=== PATIENT | female | born 1935 | race Caucasian/White ===

== ENCOUNTER → 2017-10-14 | Outpatient (CLI) | payer MEDICARE, BC ==
[~2017-10-14] MED LIST: ACETAMINOPHEN325 M1 OR; ALOE VERA237 ML PO; APAP500 PO; AZITHROMYCIN 2250 MG PO; BACTRIM DS TAB1 EACH PO; BENTYL20 MG PO; BONE SUPPORT PO; CENTRUM SILVER1 EAC4 PO; CEROVITE SENIO1 EACH PO; CIPRO250 M1 PO; CIPRO500 MG PO; COLACE100 MG OR; COUMADIN 4 MG TA4 M1; COUMADIN 5 MG TA5 MG PO; ENOXAPARIN80 MG/0.1 SUBQ; FENTANYL PA12 MCG/H1 TRANSDERM; FENTANYL PA25 MCG/HR; FENTANYL PA25 MCG/HR TOP; FENTANYL PA25 MCG/HR TRANSDERM; FISH OIL 1,0001 EAC5 PO; FISH OIL 1,001000 M1 PO; FUROSEMIDE 20 M20 MG PO; Fish Oil PO; GLUCOSAMINE &1 EAC1 PO; GLUCOSAMINE COMPLEX PO; HYDROCODONE-AP1 EAC6 PO; K-DUR10 MEQ PO; KEFLEX500 MG PO; LIDODERM 5%1 PATC1 TRANSDERM; LISINOPRIL-HCT1 EACH PO; MIRALAX17 GM PO; MOBIC7.5 MG PO; MULTIVITAMINS PO; NAPROSYN500 MG PO; NEURONTIN 300300 M1; NEURONTIN 300300 M1 PO; NOPAL PO; NORCO 5-325 TA1 EACH PO; OCUVITE TABLET1 EAC1 PO; OMEGA-3 + VITA1 EAC1 PO; OMEGA-31000 M1; OMEGA-31000 MG PO; ONE-A-DAY WOMENS PO; OXYBUTYNIN 5 MG5 M1 PO; PHENAZOPYRIDIN200 M2 PO; PRILOSEC 20 MG20 MG PO; PRINZIDE 10-121 EACH PO; SENOKOT-S1 TA1 PO; TAMSULOSIN HCL0.4 M1 PO; TRAMADOL 50 MG50 MG PO; ULTRAM 50MG TAB50 MG PO; VITAMIN D2000 UNIT PO; VOLTAREN GEL 1100 G2 TOP; ZOFRAN4 MG PO; [UNRECOGNIZED DRUG - OTHER]; [UNRECOGNIZED DRUG - OTHER]; [UNRECOGNIZED DRUG - OTHER]; [UNRECOGNIZED DRUG - OTHER] PO; [UNRECOGNIZED DRUG - OTHER] PO; [UNRECOGNIZED DRUG - OTHER] PO; [UNRECOGNIZED DRUG - OTHER] PO
== END ==
LOC: M.RAD 10:30
DX: J98.11 Atelectasis (principal); C49.A0 Gastrointestinal stromal tumor, unspecified site